=== PATIENT | male | born 1970 | race Caucasian/White ===

== ENCOUNTER 2018-06-05 03:22 | Emergency (ER) | payer MEDICARE, MEDICAID ==
[~2018-06-05] VITALS: Ht 175.3 cm; Wt 181.4 kg
[2018-06-05 05:09] LABS: Basophils # (auto) 0.1 uL; Basophils % (auto) 0.9 % (0.0-2.0); Eosinophils # (auto) 0.2 uL; Eosinophils % (auto) 2.5 % (0.0-7.0); Hemoglobin 13.3 g/dL (13.5-17.5); Lymphocytes # (auto) 1.9 uL; Lymphocytes % (auto) 27.6 % (10.0-50.0); Mean Corpuscular Hemoglobin 29.4 pg (28.0-32.0); Mean Corpuscular Hgb Conc. 33.2 g/dL (32.0-36.0); Mean Corpuscular Volume 88.4 fL (80.0-100.0); Monocytes # (auto) 0.7 uL; Monocytes % (auto) 10.5 % (0.0-12.0); Neutrophils % (auto) 58.5 % (37.0-80.0); Platelet Count (auto) 302 10^3/uL (140-450); Red Blood Cells 4.52 10^6/uL (4.5-5.90); Red Cell Distribution Width 12.8 % (11.8-14.3); White Blood Cell 6.8 10^3/uL (4.4-10.8)
[2018-06-05 05:44] LABS: INR 0.96 (0.9-1.15); Partial Thromboplastin Time 27.1 sec (23.78-33.04); Prothrombin Time 10.3 sec (9.27-12.13)
[2018-06-05 06:27] LABS: Alanine Aminotransferase 23 U/L (16-61); Albumin 3.2 g/dL (3.4-5.0); Anion Gap 7 (5-15); Blood Urea Nitrogen 8 mg/dL (7-18); Calcium 8.9 mg/dL (8.5-10.1); Carbon Dioxide 26 mmol/L (21-32); Chloride 103 mmol/L (98-107); Glucose 90 mg/dL (74-106); Magnesium 1.7 mg/dL (1.6-2.6); Potassium 3.7 mmol/L (3.5-5.1); Sodium 136 mmol/L (136-145)
[2018-06-05 06:32] LABS: Alkaline Phosphatase 54 U/L (45-117); Aspartate Aminotransferase 12 U/L (15-37); BUN/Creatinine Ratio 11.4; Bilirubin, Total 0.5 mg/dL (0.2-1.0); GFR African American 155 mL/min; GFR Non-African American 128 mL/min; Total Protein 7.2 g/dL (6.4-8.2)
[2018-06-05 08:20] VITALS: BP 100/46
== END 2018-06-05 08:34 | disposition home or self-care (01) ==
LOC: EDBD 03:22 → ER 03:25
DX: G47.30 Sleep apnea, unspecified (principal); R00.2 Palpitations; Z88.0 Allergy status to penicillin
CPT/HCPCS: 36415; 71045; 80053; 83735; 83880; 84443; 84484; 85025; 85610; 85730; 93005